=== PATIENT | female | born 1995 | race Caucasian/White ===

== ENCOUNTER 2017-01-19 10:49 | Emergency (ER) | payer SELFPAY ==
[~2017-01-19] VITALS: Ht 172.7 cm; Wt 77.1 kg
[~2017-01-19 10:49] MED LIST: AMOXICILLIN500 MG PO; AMOXIL500 MG PO; CIPROFLOXACIN500 MG PO; MACROBID100 M1 PO; MOTRIN800 MG PO; NKHM; PRENATAL1 TA1 PO; TRAMADOL HCL50 MG PO; TYLENOL325 M1; ZOFRAN ODT4 MG SL
[2017-01-19 11:10] LABS: BILIRUBIN NEGATIVE (NEGATIVE); BLOOD NEGATIVE (NEGATIVE); CLARITY SL CLOUDY (CLEAR); COLOR YELLOW (YELLOW); GLUCOSE NEGATIVE (NEGATIVE); KETONE NEGATIVE (NEGATIVE); LEUKO ESTERASE 1+ (NEGATIVE); NITRITE NEGATIVE (NEGATIVE); PH 6.5 (5.0-9.0); PROTEIN NEGATIVE (NEGATIVE); UROBILINOGEN 0.2 E.U./dl (0.2-1.0)
[2017-01-19 11:13] LABS: BASO % 0.4 % (0.0-1.0); EOS # 0.1 10*3/uL (0.0-0.4); EOS % 1.6 % (1.0-4.0); HEMATOCRIT 43.2 % (37.0-47.0); HEMOGLOBIN 14.6 g/dl (12.0-16.0); LYMPH # 1.2 10*3/uL (1.3-4.4); LYMPH % 17.6 % (27.0-41.0); MEAN CELL VOLUME 86.9 fl (81.0-99.0); MEAN CORPUSCULAR HGB 29.4 pg (27.0-31.0); MEAN CORPUSCULAR HGB CONC 33.8 g/dl (33.0-37.0); MEAN PLATELET VOLUME 10.9 fl (9.6-12.3); MONO # 0.5 10*3/uL (0.1-1.0); MONO % 7.5 % (3.0-9.0); NEUT % 72.5 % (47.0-73.0); PLATELET COUNT AUTOMATED 207 10*3/uL (130-400); RED BLOOD COUNT 4.97 10*6/uL (4.10-5.10); RED CELL DISTRI WIDTH 12.9 % (0-14.5); WHITE BLOOD COUNT 6.9 10*3/uL (4.8-10.8)
[2017-01-19 11:23] LABS: BACTERIA 1+; RBC 0-2 rbc/hpf (0-2); URINE REFLEX COMMENT YES (NO)
[2017-01-19] MEDS ORDERED: MACROBID100 M1 PO (11:26)
[2017-01-19] MEDS ORDERED: PYRIDIUM200 M1 PO (11:26)
[2017-01-19 11:39] LABS: ALKALINE PHOSPHATASE 57 U/L (45-117); BILIRUBIN, TOTAL 0.3 mg/dl (0.2-1.0); BUN 11 mg/dl (7-24); CARBON DIOXIDE 23 mmol/L (21-32); CHLORIDE 109 mmol/L (98-107); EST GLOM FILT AFRICAN AMERICAN > 60 ml/min; GLUCOSE 112 mg/dL (65-99); POTASSIUM 4.1 mmol/L (3.5-5.1); SGOT/AST 14 IU/L (3-35); SGPT/ALT 17 U/L (12-78); SODIUM 140 mmol/L (136-145); TOTAL PROTEIN 7.2 gm/dL (6.4-8.2)
== END 2017-01-19 11:59 | disposition home or self-care (01) ==
LOC: ED 10:49
PROVIDERS: Nurse Practitioner Family
DX: N39.0 Urinary tract infection, site not specified (principal); R03.0 Elevated blood-pressure reading, without diagnosis of hypertension; F17.200 Nicotine dependence, unspecified, uncomplicated

== ENCOUNTER 2017-02-23 23:04 | Emergency (ER) | payer SELFPAY ==
[~2017-02-23] VITALS: Ht 172.7 cm; Wt 72.6 kg
[~2017-02-23 23:04] MED LIST changes: +PYRIDIUM200 M1 PO
[2017-02-23] MEDS ORDERED: TESSALON PERLE100 M1 PO (23:33)
[2017-02-23] MEDS ORDERED: DELTASONE20 M1 PO (23:33)
[2017-02-23] MEDS ORDERED: VENTOLIN 02.5 MG/3 M INH (23:33)
[2017-02-23] MEDS ORDERED: ZITHROMAX250 MG PO (23:33)
== END 2017-02-24 00:50 | disposition home or self-care (01) ==
LOC: ED 23:04
DX: J40 Bronchitis, not specified as acute or chronic (principal)

== ENCOUNTER 2018-08-31 15:40 | Emergency (ER) | payer SELFPAY ==
[~2018-08-31] VITALS: Ht 172.7 cm; Wt 79.4 kg
[~2018-08-31 15:40] MED LIST changes: +DELTASONE20 M1 PO; +TESSALON PERLE100 M1 PO; +VENTOLIN 02.5 MG/3 M INH; +ZITHROMAX250 MG PO
[2018-08-31] MEDS ORDERED: ANAPROX DS550 MG PO (17:43)
== END 2018-08-31 17:47 | disposition home or self-care (01) ==
LOC: ED 15:40
DX: S40.021A Contusion of right upper arm, initial encounter (principal); M79.631 Pain in right forearm; W22.8XXA Striking against or struck by other objects, initial encounter; Y93.89 Activity, other specified; Y92.89 Other specified places as the place of occurrence of the external cause; Y99.8 Other external cause status